=== PATIENT | male | born 1950 | race Caucasian/White ===

== ENCOUNTER 2018-06-21 09:51 | Day surgery (SDC) | payer MEDICARE, OTHER ==
[2018-06-21] MEDS: Polymyxin B/Trimethoprim 10 ML Bottle EYELF SCH ×4 (10:37→12:52)
--- NOTE | 2018-06-21 10:49 | PCM.PREANE ---
Preanesthetic Assessment - Anesthesia/Transfusion/Family Hx Anesthesia History: Prior Anesthesia Without Reaction Family History of Anesthesia Reaction: No Transfusion History: No Prior Transfusion(s) - Review of Systems General: No Symptoms Pulmonary: No Symptoms Cardiovascular: No Symptoms Gastrointestinal: No Symptoms Neurological: No Symptoms Other: Reports: None - Physical Assessment NPO Status Date: 06/20/18 NPO Status Time: 22:30 Pulse: 70 O2 Sat by Pulse Oximetry: 96 Respiratory Rate: 16 Blood Pressure: 150/86 Temperature: 98.2 C Vital Signs: Last Vital Signs Temp 36.8 C 06/21/18 10:25 Pulse 70 06/21/18 10:25 Resp 16 06/21/18 10:25 BP 150/86 H 06/21/18 10:25 Pulse Ox 96 06/21/18 10:25 Height: 1.83 m Weight: 104.326 kg ASA Class: 1 Mental Status: Alert & Oriented x3 Airway Class: Mallampati = 2 Dentition: Reports: Normal Dentition Thyro-Mental Finger Breadths: 3 Mouth Opening Finger Breadths: 3 ROM/Head Extension: Full Lungs: Clear to Auscultation, Normal Respiratory Effort Cardiovascular: Regular Rate, Regular Rhythm - Allergies Allergies/Adverse Reactions: Allergies Allergy/AdvReac Type Severity Reaction Status Date / Time feathers Allergy Cannot Verified 06/20/18 07:15 Remember Penicillins Allergy Cannot Verified 06/20/18 07:15 Remember pine trees Allergy Cannot Uncoded 06/20/18 07:15 Remember - Acknowledgements Anesthesia Type Planned: MAC Pt an Appropriate Candidate for the Planned Anesthesia: Yes Alternatives and Risks of Anesthesia Discussed w Pt/Guardian: Yes Pt/Guardian Understands and Agrees with Anesthesia Plan: Yes PreAnesthesia Questionnaire HEENT History: Reports: Cataract Cardiovascular History: Reports: None Respiratory History: Reports: None Gastrointestinal History: Reports: None Genitourinary History: Reports: None Musculoskeletal History: Reports: None Neurological History: Reports: None Psychiatric History: Reports: None Endocrine/Metabolic History: Reports: None - Past Surgical History HEENT Surgical History: Reports: Tonsillectomy - SUBSTANCE USE Tobacco Use Within Last Twelve Months: Smokeless Tobacco - HOME MEDS Home Medications: Home Meds . [No Known Home Meds] 06/20/18 [History] - CURRENT (IN HOUSE) MEDS Current Meds: Current Medications Brimonidine Tartrate (Alphagan 0.2% Ophth Soln) 0 ml EYELF ASDIRECTED GAM[facility]IEL Stop: 06/21/18 18:00 Cefuroxime Sodium (Zinacef) 0 mg EYELF ASDIRECTED G[facility] Stop: 06/21/18 18:00 Lidocaine HCl (Xylocaine-Mpf 1%) 0 ml INJECT ASDIRECTED G[facility]ALIEL Stop: 06/21/18 18:00 Phenylephrine HCl (Bill-Synephrine 2.5% Ophth Soln) 0 ml EYELF ASDIRECTED G[facility] Stop: 06/21/18 18:00 Pilocarpine HCl (Pilocar 4% Ophth Soln) 0 ml EYELF ASDIRECTED G[facility] Stop: 06/21/18 18:00 Polymyxin/Trimethoprim Sulfate (Polytrim Ophth Soln) 0 ml EYELF ASDIRECTED G[facility] Stop: 06/21/18 18:00 Last Admin: 06/21/18 10:37 Dose: 1 drop Tetracaine HCl (Tetracaine 0.5% Steri-Unit Kimmie) 0 ml EYELF ASDIRECTED G[facility]ALIEL Stop: 06/21/18 18:00 Tropicamide (Mydriacyl 1% Ophth Soln) 0 ml EYELF ASDIRECTED GAMALIEL Stop: 06/21/18 18:00
[2018-06-21] MEDS: Brimonidine 0.2% Ophth Soln 5 ML Bottle EYELF SCH ×4 (10:50→12:52)
[2018-06-21] MEDS: Phenylephrine 2.5% Ophth Soln 2 ML Bot EYELF SCH ×6 (10:56→12:35)
[2018-06-21] MEDS: Tropicamide 1% Ophth Soln 15 ML Bottle EYELF SCH ×4 (11:09→12:09)
[2018-06-21] MEDS: Lidocaine 1% PF 2 ML SDV INJECT SCH ×2 (12:08→12:41)
[2018-06-21] MEDS: Cefuroxime 10 MG/ML SYRINGE EYELF SCH ×2 (12:10→12:40)
[2018-06-21] MEDS: Tetracaine HCl/PF 0.5% 4 ML Bottle EYELF SCH ×3 (12:10→12:42)
[2018-06-21] MEDS: Pilocarpine 4% Ophth Soln 15 ML Bot EYELF SCH ×2 (12:15→12:52)
--- NOTE | 2018-06-21 13:00 | PCM48HPAN ---
Post Anesthesia Note - EVALUATION WITHIN 48HRS OF ANESTHETIC Vital Signs in Normal Range: Yes Patient Participated in Evaluation: Yes Respiratory Function Stable: Yes Airway Patent: Yes Cardiovascular Function Stable: Yes Hydration Status Stable: Yes Pain Control Satisfactory: Yes Nausea and Vomiting Control Satisfactory: Yes Mental Status Recovered: Yes Pulse Rate: 63 SaO2: 97 Resp Rate: 17 Temperature: 98.2 C Blood Pressure: 141/80
== END 2018-06-21 13:13 | disposition home or self-care (01) ==
LOC: JD.SDS 09:51
PROVIDERS: ATTEND Ophthalmology
DX: H25.813 Combined forms of age-related cataract, bilateral (principal); Z88.0 Allergy status to penicillin; Z87.891 Personal history of nicotine dependence; Z91.09 Other allergy status, other than to drugs and biological substances
CPT/HCPCS: 66984; A9270; C1780; J0697; J2001

== ENCOUNTER 2018-07-17 09:20 | Day surgery (SDC) | payer MEDICARE, OTHER ==
[~2018-07-17 09:20] MED LIST: Cefuroxime 10 MG/ML SYRINGE EYERT SCH; Lidocaine 1% PF 2 ML SDV INJECT SCH; Pilocarpine 4% Ophth Soln 15 ML Bot EYERT SCH
[2018-07-17] MEDS: Polymyxin B/Trimethoprim 10 ML Bottle EYERT SCH ×3 (09:37→10:51)
[2018-07-17] MEDS: Brimonidine 0.2% Ophth Soln 5 ML Bottle EYERT SCH ×3 (09:42→10:51)
[2018-07-17] MEDS: Tropicamide 1% Ophth Soln 15 ML Bottle EYERT SCH ×5 (09:42→10:19)
[2018-07-17] MEDS: Phenylephrine 2.5% Ophth Soln 2 ML Bot EYERT SCH ×5 (09:47→10:33)
--- NOTE | 2018-07-17 09:54 | PCM.PREANE ---
Preanesthetic Assessment - Anesthesia/Transfusion/Family Hx Anesthesia History: Prior Anesthesia Without Reaction Family History of Anesthesia Reaction: No Transfusion History: No Prior Transfusion(s) - Review of Systems General: No Symptoms Pulmonary: No Symptoms Cardiovascular: No Symptoms Gastrointestinal: No Symptoms Neurological: No Symptoms Other: Reports: None - Physical Assessment NPO Status Date: 07/16/18 NPO Status Time: 20:00 Pulse: 72 O2 Sat by Pulse Oximetry: 97 Respiratory Rate: 16 Blood Pressure: 150/83 Temperature: 98.2 C Vital Signs: Last Vital Signs Temp 36.8 C 07/17/18 09:25 Pulse 72 07/17/18 09:25 Resp 16 07/17/18 09:25 BP 150/83 H 07/17/18 09:25 Pulse Ox 97 07/17/18 09:25 Height: 15.24 cm Weight: 99.79 kg ASA Class: 1 Mental Status: Alert & Oriented x3 Airway Class: Mallampati = 2 Dentition: Reports: Normal Dentition Thyro-Mental Finger Breadths: 3 Mouth Opening Finger Breadths: 3 ROM/Head Extension: Full Lungs: Clear to Auscultation, Normal Respiratory Effort Cardiovascular: Regular Rate, Regular Rhythm - Allergies Allergies/Adverse Reactions: Allergies Allergy/AdvReac Type Severity Reaction Status Date / Time feathers Allergy Cannot Verified 07/16/18 14:24 Remember Penicillins Allergy Cannot Verified 07/16/18 14:24 Remember pine trees Allergy Cannot Uncoded 07/16/18 14:24 Remember - Acknowledgements Anesthesia Type Planned: MAC Pt an Appropriate Candidate for the Planned Anesthesia: Yes Alternatives and Risks of Anesthesia Discussed w Pt/Guardian: Yes Pt/Guardian Understands and Agrees with Anesthesia Plan: Yes PreAnesthesia Questionnaire HEENT History: Reports: Cataract Cardiovascular History: Reports: None Respiratory History: Reports: None Gastrointestinal History: Reports: None Genitourinary History: Reports: None Musculoskeletal History: Reports: None Neurological History: Reports: None Psychiatric History: Reports: None Endocrine/Metabolic History: Reports: None - Past Surgical History HEENT Surgical History: Reports: Cataract Surgery, Tonsillectomy - SUBSTANCE USE Smoking Status *Q: Former Smoker - HOME MEDS Home Medications: Home Meds . [No Known Home Meds] 06/20/18 [History] - CURRENT (IN HOUSE) MEDS Current Meds: Current Medications Brimonidine Tartrate (Alphagan 0.2% Ophth Soln) 0 ml EYERT ASDIRECTED GAMALIEL Stop: 07/17/18 18:00 Last Admin: 07/17/18 09:42 Dose: 1 drop Cefuroxime Sodium (Zinacef) 0 mg EYERT ASDIRECTED GAMALIEL Stop: 07/17/18 18:00 Lidocaine HCl (Xylocaine-Mpf 1%) 0 ml INJECT ASDIRECTED [facility] Stop: 07/17/18 18:00 Phenylephrine HCl (Bill-Synephrine 2.5% Ophth Soln) 0 ml EYERT ASDIRECTED [facility] Stop: 07/17/18 18:00 Last Admin: 07/17/18 09:47 Dose: 1 drop Pilocarpine HCl (Pilocar 4% Ophth Soln) 0 ml EYERT ASDIRECTED [facility] Stop: 07/17/18 18:00 Polymyxin/Trimethoprim Sulfate (Polytrim Ophth Soln) 0 ml EYERT ASDIRECTED [facility] Stop: 07/17/18 18:00 Last Admin: 07/17/18 09:37 Dose: 1 drop Tetracaine HCl (Tetracaine 0.5% Steri-Unit Kimmie) 0 ml EYERT ASDIRECTED [facility] Stop: 07/17/18 18:00 Tropicamide (Mydriacyl 1% Ophth Soln) 0 ml EYERT ASDIRECTED [facility] Stop: 07/17/18 18:00
[2018-07-17] MEDS: Tetracaine HCl/PF 0.5% 4 ML Bottle EYERT SCH ×4 (10:22→10:47)
--- NOTE | 2018-07-17 10:54 | PCM48HPAN ---
Post Anesthesia Note - EVALUATION WITHIN 48HRS OF ANESTHETIC Vital Signs in Normal Range: Yes Patient Participated in Evaluation: Yes Respiratory Function Stable: Yes Airway Patent: Yes Cardiovascular Function Stable: Yes Hydration Status Stable: Yes Pain Control Satisfactory: Yes Nausea and Vomiting Control Satisfactory: Yes Mental Status Recovered: Yes Pulse Rate: 66 SaO2: 96 Resp Rate: 16 Temperature: 98.2 C Blood Pressure: 155/87
== END 2018-07-17 11:08 | disposition home or self-care (01) ==
LOC: JD.SDS 09:20
PROVIDERS: ATTEND Ophthalmology
DX: H25.811 Combined forms of age-related cataract, right eye (principal); H02.834 Dermatochalasis of left upper eyelid; H02.831 Dermatochalasis of right upper eyelid; Z88.0 Allergy status to penicillin; Z98.42 Cataract extraction status, left eye; Z96.1 Presence of intraocular lens; Z87.891 Personal history of nicotine dependence
CPT/HCPCS: 66984; A9270; C1780; J0697; J2001

== ENCOUNTER → 2018-09-13 | Day surgery (SDC) | payer MEDICARE, OTHER ==
[~2018-09-13] MED LIST changes: -Cefuroxime 10 MG/ML SYRINGE EYERT SCH; -Lidocaine 1% PF 2 ML SDV INJECT SCH; +Phenylephrine 2.5% Ophth Soln 2 ML Bot EYELF SCH; -Pilocarpine 4% Ophth Soln 15 ML Bot EYERT SCH; +Tropicamide 1% Ophth Soln 15 ML Bottle EYELF SCH
[2018-09-13] MEDS: Brimonidine 0.2% Ophth Soln 5 ML Bottle EYELF SCH ×2 (10:31→11:06)
== END ==
LOC: JD.SDS 10:24
PROVIDERS: ATTEND Ophthalmology
DX: H26.492 Other secondary cataract, left eye (principal); H02.834 Dermatochalasis of left upper eyelid; H02.831 Dermatochalasis of right upper eyelid; H16.223 Keratoconjunctivitis sicca, not specified as Sjogren's, bilateral; Z96.1 Presence of intraocular lens